=== PATIENT | female | born 1955 | race Caucasian/White ===

== ENCOUNTER → 2017-04-21 | Outpatient (CLI) | payer OTHER ==
[~2017-04-21] MED LIST: LUNESTA3 MG PO; NEXIUM PO; PROAIR HFA INH8.5 GM
--- NOTE | 2017-04-21 08:31 | Diagnostic Imaging Report ---
PROCEDURE:US GALLBLADDER COMPARISON:None. INDICATIONS:Right upper quadrant Pain TECHNIQUE: Menon scale color Doppler ultrasound gallbladder FINDINGS: Imaged portions of the abdominal aorta, inferior vena cava and pancreatic head are normal. Right liver span 12.6 cm. Normal liver echogenicity with a smooth margin. Portal vein diameter 1 cm; normal flow direction. Normal gallbladder. Wall thickness 2 mm. Common bile duct diameter 5 mm. Right kidney span 9.5 cm. Normal kidney. CONCLUSION: Normal liver and gallbladder. No conspicuous etiology for right upper quadrant pain. Dictated by: Stevan Nicolas M.D. on 04/21/2017 at 8:39 Electronically approved by: Stevan Nicolas M.D. on 04/21/2017 at 8:39
== END ==
LOC: US 07:19
PROVIDERS: ATTEND Internal Medicine Gastroenterology
DX: R10.11 Right upper quadrant pain (principal)
CPT/HCPCS: 76705

== ENCOUNTER → 2017-08-04 | Outpatient (CLI) | payer OTHER ==
[~2017-08-04] MED LIST changes: +SINCALIDE 3 MCG/VIAL INJ ONE
--- NOTE | 2017-08-04 14:37 | Diagnostic Imaging Report ---
Hepatobiliary Scan with Gallbladder Ejection Fraction Clinical information: 62 F with worsening epigastric abdominal pain and GERD. Report: Following intravenous administration of 6 millicuries of Tc-99m mebrofenin, dynamic images of the abdomen in the anterior projection were obtained through 25 minutes. Sincalide (CCK analog) 1.2 micrograms was administered intravenously over 30 minutes with additional imaging for determination of gallbladder ejection fraction. Perfusion to the liver is normal. Extraction of tracer from the blood pool by the liver parenchyma is normal. Tracer is seen promptly within the biliary tract. The gallbladder begins to fill by 6 minutes post-injection of tracer and fills adequately. Tracer is seen in the small bowel by 18 minutes. The gallbladder ejection fraction with administration of sincalide is 98% (normal greater than 40%). Impression: 1. Filling of the gallbladder excludes the diagnosis of acute cystic duct obstruction/acute cholecystitis. 2. Normal gallbladder ejection fraction of 98% does not support the clinical diagnosis of chronic cholecystitis/gallbladder dyskinesia. Signed by: Dr. Mony Kendall M.D. on 08/04/2017 2:33 PM
== END ==
LOC: NM 09:46
PROVIDERS: ATTEND Internal Medicine Gastroenterology
DX: R10.13 Epigastric pain (principal)
CPT/HCPCS: 78227; A9537; J2805

== ENCOUNTER → 2017-09-09 | Day surgery (SDC) | payer OTHER ==
[~2017-09-09] MED LIST changes: +FENTANYL CITRATE/PF 100MCG/2 ML INJ ONE; +LIDOCAINE HCL 2% LOCAL INJ 5 ML SDV VIAL INJ ONE; +METOCLOPRAMIDE HCL 10 MG/2ML VIAL ONE; +MIDAZOLAM HCL 2 MG/2 ML VIAL ONE; +PROPOFOL IV EMULSION 10 MG/ML 50 ML VIAL ONE; -SINCALIDE 3 MCG/VIAL INJ ONE; +ZYRTEC10 M3 PO; +[UNRECOGNIZED DRUG - OTHER] PO
--- OUTSIDE RECORDS SUMMARY | 2017-09-09 08:04 | XMS REPORT ---
Author Author [facility] Address Unknown Phone Unavailable Care Team Providers Care Top Precipitator Operator Helper Name Role Phone THAD RINCON Unavailable Unavailable Problems This patient has no known problems. Allergies, Adverse Reactions, Alerts This patient has no known allergies or adverse reactions. Medications This patient has no known medications. Results Test Description Test Time Test Comments Text Results Atomic Results Result Comments HEPTOBILIARY W PHARM [place] [address] Patient Name: SUNIL FAIR MR #: [id number] : 1955 Age/Sex: 62/F Req #: [id number] [facility] Physician: Ordered by: THAD RINCON MD Report #: [id number] Location: [place] Room/Bed: Procedure: [id number] NM/HEPTOBILIARY W PHARM Exam Date: 08/04/17 Exam Time: 1000 REPORT STATUS: Signed Hepatobiliary Scan with Gallbladder Ejection Fraction Clinical information: 62 F with worsening epigastric abdominal pain and GERD. Report: Following intravenous administration of 6 millicuries of Tc-99m mebrofenin, dynamic images of the abdomen in the anterior projection were obtained through 25 minutes. Sincalide (CCK analog) 1.2 micrograms was administered intravenously over 30 minutes with additional imaging for determination of gallbladder ejection fraction. Perfusion to the liver is normal. Extraction of tracer from the blood pool by the liver parenchyma is normal. Tracer is seen promptly within the biliary tract. The gallbladder begins to fill by 6 minutes post-injection of tracer and fills adequately. Tracer is seen in the small bowel by 18 minutes. The gallbladder ejection fraction with administration of sincalide is 98% (normal greater than 40%). Impression: 1. Filling of the gallbladder excludes the diagnosis of acute cystic duct obstruction/acute cholecystitis. 2. Normal gallbladder ejection fraction of 98% does not support the clinical diagnosis of chronic cholecystitis/gallbladder dyskinesia. Signed by: Dr. Salvador Kendall M.D. on 2:33 PM Dictated By: SALVADOR KENDALL MD 1433 Transcribed By: TERESA on 08/04/17 1433 COPY TO: THAD RINCON MD US GALLBLADDER [place] [address] Patient Name: SUNIL FAIR MR #: [id number] : 1955 Age/Sex: 61/F Req #: [id number] Adm Physician: Ordered by: THAD RINCON MD Report #: [id number] Location: Room/Bed: Procedure: [id number] US/US GALLBLADDER Exam Date: Exam Time: REPORT STATUS: Signed PROCEDURE: US GALLBLADDER COMPARISON: None. INDICATIONS: Right upper quadrant Pain TECHNIQUE: Menon scale color Doppler ultrasound gallbladder FINDINGS: Imaged portions of the abdominal aorta, inferior vena cava and pancreatic head are normal. Right liver span 12.6 cm. Normal liver echogenicity with a smooth margin. Portal vein diameter 1 cm; normal flow direction. Normal gallbladder. Wall thickness 2 mm. Common bile duct diameter 5 mm. Right kidney span 9.5 cm. Normal kidney. CONCLUSION: Normal liver and gallbladder. No conspicuous etiology for right upper quadrant pain. Dictated by: May Nicolas M.D. on 04/21/2017 at 8:39 Electronically approved by: May Nicolas M.D. on 04/21/2017 at 8:39 Dictated By: MAY NICOLAS MD 8 Transcribed By: PARVEZ on 04/21/17838 COPY TO: THAD RINCON MD
[2017-09-09 12:18] LABS: ALBUMIN 3.4 g/dL (3.5-5.0); BILIRUBIN,DIRECT 0.1 mg/dL (0.0-0.5)
--- NOTE | 2017-09-09 14:07 | Operative Report ---
DATE OF PROCEDURE: September 09, 2017 REFERRING PHYSICIAN: Dr. Miladys Boudreaux. PROCEDURE PERFORMED: Esophagogastroduodenoscopy with esophageal dilatation and biopsies. INDICATIONS FOR ESOPHAGOGASTRODUODENOSCOPY: Dysphagia, odynophagia, history of heartburn indigestion. MEDICATION: Patient was done under MAC. Please see anesthesiologist's note. PROCEDURE: With the patient in the left lateral decubitus position, the flexible fiberoptic Olympus gastroscope was introduced into the esophagus under direct visualization without any difficulty. There was some patchy erythema noted in the distal esophagus. There were some focal varicosities noted in the cervical esophagus. Some prominent subepithelial veins were noted in the esophagus versus grade 1 esophageal varices. There was a mild stricture noted at the GE junction that was dilated to size 52-Sudanese Vuong. The scope was then advanced with ease into the stomach, and mucosa overlying the antrum and the body revealed some patchy intense erythema and low-grade edema, and biopsies were obtained and sent to stain for H. pylori. The pylorus was intubated with ease, and the scope was advanced all the way to the 2nd portion of the duodenum. The scope was then withdrawn slowly. Mucosa overlying the proximal 2nd portion and the duodenal bulb appeared to be within normal limits. The scope was then withdrawn back into the stomach and retroflexed, and the mucosa overlying the fundus and the cardia appeared to be within normal limits. The scope was then straightened out. The stomach was decompressed. The scope was subsequently withdrawn. Patient tolerated the procedure well. IMPRESSION: 1. Focal varicosities cervical esophagus. 2. Mild distal esophagitis. 3. Prominent subepithelial veins versus grade 1 esophageal varices. 4. Mild stricture at gastroesophageal junction dilated to a size 52-Sudanese Vuong. 5. Gastritis biopsied. Biopsies sent to stain for H. pylori. PLAN: Follow up histology. Increase Nexium to 40 mg 1 p.o. a.c. b.i.d. Job#: [id number] EV cc:MILADYS BOUDREAUX M.D.
== END | disposition home or self-care (01) ==
LOC: OR 08:02
PROVIDERS: ATTEND Internal Medicine Gastroenterology
DX: K22.2 Esophageal obstruction (principal); I85.00 Esophageal varices without bleeding; K29.70 Gastritis, unspecified, without bleeding; K21.9 Gastro-esophageal reflux disease without esophagitis; K44.9 Diaphragmatic hernia without obstruction or gangrene; K20.8 Other esophagitis; K59.00 Constipation, unspecified; J45.909 Unspecified asthma, uncomplicated; Z88.1 Allergy status to other antibiotic agents; Z88.0 Allergy status to penicillin; Z01.810 Encounter for preprocedural cardiovascular examination; Z80.0 Family history of malignant neoplasm of digestive organs
CPT/HCPCS: 36415; 43239; 43450; 80076; 93005; J2001; J2250; J2765

== ENCOUNTER → 2017-10-15 | Outpatient (CLI) | payer OTHER ==
[~2017-10-15] MED LIST changes: -FENTANYL CITRATE/PF 100MCG/2 ML INJ ONE; -LIDOCAINE HCL 2% LOCAL INJ 5 ML SDV VIAL INJ ONE; -METOCLOPRAMIDE HCL 10 MG/2ML VIAL ONE; -MIDAZOLAM HCL 2 MG/2 ML VIAL ONE; -PROPOFOL IV EMULSION 10 MG/ML 50 ML VIAL ONE
--- NOTE | 2017-10-15 11:37 | Diagnostic Imaging Report ---
PROCEDURE:US LIVER COMPARISON:None. INDICATIONS:Esophageal varices without bleeding TECHNIQUE: [place]-scale and color Doppler transverse and longitudinal images of the right upper quadrant of the abdomen were obtained. FINDINGS: Liver: Measures 13.9 cm in right mid-clavicular line. Normal echogenicity. No masses. Main portal vein: Measures 1.0 cm with normal forward flow. Gallbladder: Normal without evidence of stones or sludge. Common Bile Duct: Measures 0.5 cm. No echogenic foci. Sonographic Pierce's sign: Negative Right kidney: Measures 9.3 x 5.2 x 5.3 cm. Normal echogenicity. No solid masses or hydronephrosis. Pancreas: The visualized portions are unremarkable. Inferior vena cava: Patent Aorta: Within normal limits Ascites: None in the right upper quadrant of the abdomen. CONCLUSION: Normal right upper quadrant ultrasound Rommel Boyce D.O. Dictated by: Rommel Boyce D.O. on 10/15/2017 at 11:41 Electronically approved by: Rommel Boyce D.O. on 10/15/2017 at 11:41
== END ==
LOC: US 07:44
PROVIDERS: ATTEND Internal Medicine Gastroenterology
DX: I85.00 Esophageal varices without bleeding (principal)
CPT/HCPCS: 76705